=== PATIENT | male | born 1965 | race Caucasian/White ===

== ENCOUNTER 2023-05-01 19:30 | Emergency (ER) | payer OTHER, SELFPAY ==
[2023-05-01 19:30] VITALS: BMI 38.7
[2023-05-01 19:37] VITALS: BP 148/100
[2023-05-01 20:02] LABS: % Basophils 0.8 % (0-2); % Eosinophils 2.7 % (0-6); % Immature Granulocytes 0.5 % (0-0.5); % Lymphocytes 27.9 % (20.5-51.1); % Monocytes 9.5 % (1.7-9.3); % Neutrophils 58.6 % (42.2-75.2); Absolute Basophils 0.1 10^3/uL (0-0.2); Absolute Eosinophils 0.2 10^3/uL (0-0.7); Absolute Lymphocytes 1.8 10^3/uL (1.2-3.4); Absolute Monocytes 0.6 10^3/uL (0.1-0.6); Absolute Neutrophils 3.9 10^3/uL (1.4-6.5); Hematocrit 43.1 % (39.0-52.0); Hemoglobin 14.5 g/dL (13.0-18.0); Mean Corp Hgb Conc. 33.6 g/dL (33.0-37.0); Mean Corpuscular Hgb 29.8 pg (27.0-31.0); Mean Corpuscular Volume 88.5 fL (80.0-94.0); Mean Platelet Volume 11.5 fL (7.4-10.4); Nucleated Red Blood Cells % 0 % (-); Platelet Count 277 10^3/uL (130-400); Red Blood Cell Count 4.87 10^6/uL (4.70-6.10); Red Cell Dist. Width 12.6 % (11.5-14.5); White Blood Cell Count 6.6 10^3/uL (4.8-10.8)
[2023-05-01 20:12] LABS: ALT (SGPT) 51 U/L (0-50); AST (SGOT) 43 U/L (17-59); Albumin 4.4 g/dl (3.5-5.0); Alkaline Phosphatase 120 U/L (38-126); Blood Urea Nitrogen 18 mg/dl (9-20); Carbon Dioxide 28 mmol/L (22-30); Chloride 101 mmol/L (98-107); Glucose 111 mg/dl (70-99); Potassium 4.9 mmol/L (3.5-5.1); Sodium 137 mmol/L (135-145); Total Bilirubin 0.7 mg/dl (0.2-1.3); Total Protein 7.7 g/dl (6.3-8.2); eGFR > 60.00
[2023-05-01 20:22] LABS: Troponin I < 0.012 ng/ml
--- NOTE | 2023-05-01 22:55 | ED.GENMED ---
History of Present Illness
General
Chief Complaint: Chest Pain
Source: patient
Exam Limitations: none
Time Seen by Provider: 05/01/23 22:44
Travel History
Have you had any contact with someone who has COVID-19?: No
Do you have any symptoms of coronavirus? Fever > 100 degrees, chills, cough, shortness of breath, sore throat, loss of taste or smell, muscle aches, or headache?: No
History of Present Illness
History of Present Illness:
This is a 57 year old male that comes in with c/o chest pain, some discomfort in the posterior neck. States that this started about 1.5 days ago and it comes and goes. States that its like a heaviness in the left chest. States that it does seem to
be more with movement of the left arm. Denies any injury, fever, chills, SOB, abd pain, nausea, vomiting, diarrhea, headache, dizziness, urinary burning.
Past History
Past History
ED Past Medical History: Asthma, GERD, HTN, Hypercholesterolemia, NIDDM, Psychiatric (Anxiety) and Other (Angina); Negative MT
ED Past Surgical History: Other (Hernia, Bariatric Surgery)
Social History
Tobacco: Non-smoker
Alcohol: Occasional
Drug: None
Personal:
Living: with family
Employment: Employed
Family History
Family History: CAD
Review of Systems
Review of Systems
All Other Systems: ROS reviewed and negative except as documented in HPI and ROS
Constitutional: Reports no symptoms; Denies fever or chills
EENT: Reports no symptoms
Respiratory: Reports no symptoms; Denies cough or trouble breathing
Cardiac: Reports chest pain
ABD/GI: Reports no symptoms; Denies abdominal pain, nausea, vomiting or diarrhea
: Reports no symptoms; Denies dysuria, frequency or urgency
Musculoskeletal: Reports neck pain (Left posterior neck pain)
Skin: Reports no symptoms
Neurological: Reports no symptoms; Denies dizzy or headache
Psychiatric: Reports no symptoms
Phy Exam
General Physical Exam
General Presentation: no apparent distress
General age: appears stated age
General Skin: warm and dry
General Habitus: normal
General Mental: alert
General Hydration: appears well hydrated
ENT Exam
ENT Exam: TM's normal, pharynx normal and neck supple
Eye Exam
Eye Exam: EOMI
Cardiovascular Exam
Cardiovascular Exam: regular rate/rhythm, no edema, no murmur and normal peripheral pulses
Pulmonary Exam
Pulmonary Exam: lungs clear, no respiratory distress, no rales, chest non tender, no crackles, no rhonchi, no wheezing and no cough
Gastrointestinal Exam
Gastrointestinal Exam: normal bowel sounds, non tender, soft, no organomegaly, no pulsatile mass, non distended and other (Obese)
Musculoskeletal Exam
Musculoskeletal Exam: full ROM, no edema and other (Tenderness with palpation on the left trapezius muscle)
Skin Exam
Skin Exam: normal color, warm/dry, no rash and no petechia
Psychiatric Exam
Psychiatric Exam: normal mood/affect
Scores
Heart Score for Chest Pain Patients
STEMI patient?: No
History: Slightly or Non-Suspicious
ECG: Normal
Age: >45 - <65 years
Risk Factors: 1 or 2 Risk Factors
Troponin: </= Normal Limit
Heart Score for Chest Pain Patients: 2
Heart Score Risk: 2.5% MACE over next 6 weeks
Course
Orders/Labs/Results
Orders:
Orders
05/01/23 19:32
Electrocardiogram (*1) Urgent
Reason for Study: Chest Pain
EKG- Treatment ONCE
05/01/23 19:46
CMP [Comprehensive Metabolic Panel] Urgent
Complete Blood Count/With Diff Urgent
Troponin I Urgent
05/01/23 22:24
CR Chest - 2 Views Urgent
Comment:
Reason For Exam: chest pain
05/01/23 22:55
Electrocardiogram (*1) Urgent
Reason for Study: Chest Pain
Other Reason for Exam: Repeat with Troponin
EKG- Treatment ONCE
05/01/23 23:26
Troponin I Urgent
Abnormal Lab Results
05/01/23
19:46
MPV 11.5 H fL
(7.4-10.4)
Monocytes % 9.5 H %
(1.7-9.3)
Glucose 111 H mg/dl
(70-99)
ALT 51 H U/L
(0-50)
05/01/23 19:46
05/01/23 19:46
glucose nonfasting. ALT very slightly elevated. Troponin <0.012
Second Troponin <0.012
Vital Signs
Initial and Last Documented VS:
Initial Vital Signs
Temp Pulse Resp BP Pulse Ox
98.1 F 82 18 148/100 94
05/01/23 19:37 05/01/23 19:37 05/01/23 19:37 05/01/23 19:37 05/01/23 19:37
Last Documented Vital Signs
Temp Pulse Resp BP Pulse Ox
98.1 F 63 21 146/91 95
05/01/23 19:37 05/01/23 23:30 05/01/23 23:30 05/01/23 23:13 05/01/23 23:44
MDM/Problems Addressed
Differential Diagnosis Includes:
Angina, MT, musculoskeletal pain
MDM/Problems Addressed:
This is a 57 year old male that comes in with c/o left sided chest heaviness for the past 1.5 days. States that he also has discomfort in the left posterior neck. States that this has been coming and going.
Will check labs. chest x-ray and get ECG.
Back into see patient. Explained that his second Troponin is normal along with the his chest x-ray. The fact the patient is a diabetic and this has been going on for the past 1.5 days, will place patient on the Cardiology hot line for further
evaluation. Patient to return with increased or changing pain, or any other concerns.
ECG repeat: Rate 63, NSR, left axis. Normal QRS, negative for ischemia.
Chronic conditions affecting care:
Angina
Chronic conditions affecting care: DM
Acute Exacerbation and/or Progression of Chronic Illness:
Angina
*Radiology
Radiology exam reviewed: preliminary read by ED provider (Chest negative for active disease. )
*Pulse Oximetry
Patient hypoxic: no
*EKG
Interpreted by ED Provider?: Yes
Heart Rate: 68
Rate: normal
Rhythm: sinus
[place]: left axis deviation
Interval: normal interval
QRS Pattern: normal QRS
Ischemia: no ischemia (Checked by Dr. Bravo)
*Critical Care Note
Total Time (30-74mins, 75-104mins- exclusive of procedures): Not Applicable
ED Attending Note
-
Portions of this chart may have been created with voice recognition software.� Occasional wrong word or��sound alike� substitutions may have occurred due to the inherent limitations of voice recognition software.
Discharge Plan
Departure
Patient Disposition: Home (Routine Discharge)
Date of Disposition: 05/02/23
Time of Disposition: 00:05
Patient with high blood pressure during this ER visit?: Yes
Condition: Good
Covid-19: Not Applicable
Discharge Problem:
Chest pain
Instructions: Chest Pain CBC Follow Up, BLOOD PRESSURE
Prescriptions:
No Action
metformin 500 MG tablet
500 mg PO BID
atorvastatin 40 MG tablet
40 mg PO QPM
omeprazole [Prilosec] 40 MG capsule,delayed release(DR/EC)
40 mg PO DAILY
famotidine 40 MG tablet
40 mg PO HS
clonazepam 0.5 MG tablet
0.25 mg PO BID
sertraline 25 MG tablet
25 mg PO DAILY
fluoxetine 20 MG capsule
40 mg PO DAILY
[id number] oil [Fish Oil] 1 EACH capsule
1 ea PO DAILY
buspirone 10 MG tablet
15 mg PO BID
Referrals:
Cornelius Helms MD [Family Provider] - Call in 1-3 days for appt
Activity Restrictions/Additional Instructions:
As discussed, our blood work shows that both Troponin are normal and your Chest X-ray is also normal. You have been place on the Cardiology hot line. You will be called on the next business day for further evaluation with the [employer]. IF YOU
HAVE INCREASED OR CHANGING PAIN, OR YOU HAVE ANY OTHER CONCERNS PLEASE RETURN TO THE EMERGENCY ROOM.
Interventions
Interventions:
*Risk Screen - Suicide Last Done: 05/01/23 19:37
*General Assessment Last Done: 05/01/23 23:40
*Neglect/Abuse Screening Last Done: 05/01/23 19:37
ED- Fall Risk Assessment Last Done: 05/01/23 23:44
*ED COVID-19 Vaccine History Last Done: 05/01/23 23:40
ED- Cardiac Assessment Last Done: 05/01/23 23:40
[2023-05-01 23:13] VITALS: BP 146/91
[2023-05-01 23:56] LABS: Troponin I < 0.012 ng/ml
[2023-05-02] VITALS: BP 132/74
== END 2023-05-02 00:25 | disposition home or self-care (01) ==
LOC: EMR 19:30
PROVIDERS: Clinical Nurse Specialist Family Health; Emergency Medicine; EMERGENCY PHYSICIAN Emergency Medicine; FAMILY PHYSICIAN Family Medicine
DX: R07.89 Other chest pain (principal); J45.909 Unspecified asthma, uncomplicated; K21.9 Gastro-esophageal reflux disease without esophagitis; I10 Essential (primary) hypertension; E78.00 Pure hypercholesterolemia, unspecified; E11.9 Type 2 diabetes mellitus without complications; F41.9 Anxiety disorder, unspecified; Z82.49 Family history of ischemic heart disease and other diseases of the circulatory system
CPT/HCPCS: 99283; 71046; 80053; 84484; 85025; 93005

== ENCOUNTER 2024-12-17 06:45 | Outpatient (RCR) | payer OTHER, SELFPAY | END 2024-12-17 23:59 | disposition home or self-care (01) | LOC: ROT 06:45 | PROVIDERS: ATTENDING PHYSICIAN Orthopaedic Surgery Hand Surgery; FAMILY PHYSICIAN Physician Assistant Medical | DX: Z47.89 Encounter for other orthopedic aftercare (principal); S53.30XD Traumatic rupture of unspecified ulnar collateral ligament, subsequent encounter; Z73.6 Limitation of activities due to disability; W10.9XXD Fall (on) (from) unspecified stairs and steps, subsequent encounter | CPT/HCPCS: 97166; 97535; 97760 ==

== ENCOUNTER 2025-01-10 11:15 | Outpatient (RCR) | payer OTHER, SELFPAY | END 2025-01-24 23:59 | disposition home or self-care (01) | LOC: ROT 11:15 | PROVIDERS: ATTENDING PHYSICIAN Orthopaedic Surgery Hand Surgery; FAMILY PHYSICIAN Physician Assistant Medical | DX: Z47.89 Encounter for other orthopedic aftercare (principal); S53.30XD Traumatic rupture of unspecified ulnar collateral ligament, subsequent encounter; Z73.6 Limitation of activities due to disability; W10.9XXD Fall (on) (from) unspecified stairs and steps, subsequent encounter | CPT/HCPCS: 97110 ==